=== PATIENT | female | born 1935 ===

== ENCOUNTER 2021-07-30 06:19 | Inpatient (IN) ==
[2021-07-03 16:44] LABS: Basophils # 0.1 10*3/uL (0.0-0.2); Basophils % 0.8 % (0.0-0.8); Eosinophils # 0.2 10*3/uL (0.0-0.87); Eosinophils % 2.6 % (0.00-10.9); Hematocrit 42.3 VOL% (35.7-47.0); Hemoglobin 13.8 GM/DL (12.0-16.0); Immature Granulocytes % 0.5 %; Immature Granulocytes Absolute 0.04 #; Lymphocytes # 2.1 10*3/uL (1.4-4.0); Lymphocytes % 25.8 % (21.3-54.2); Mean Corpuscular HGB Conc 32.6 GM/DL (32-36); Mean Corpuscular Volume 96.8 FL (87-102); Mean Platelet Volume 12.4 FL (9.6-12.0); Monocytes % 7.8 % (1.7-12.7); Neutrophils % 62.5 % (38.7-73.9); Platelet Count 207 T/CUMM (130-400); Red Blood Count 4.37 MC/CUMM (3.8-5.5); Red Cell Distribution Width 13.4 % (9.3-17.3); White Blood Count 8.3 T/CUMM (4-12)
[2021-07-03 17:00] LABS: INR 1.1; PT Patient Result 12.1 SECS (10.5-12.0)
[2021-07-03 17:12] LABS: Albumin 3.4 G/DL (3.4-5.0); Bilirubin,Total 0.7 MG/DL (0.20-1.00); Calcium 9.4 MG/DL (8.5-10.1); Osmolality,Calculated 278.5 MOS/KG (273-304); Potassium 4.5 MMOL/L (3.5-5.1); Total Protein 7.8 G/DL (6.4-8.2)
[2021-07-30] MEDS ORDERED: FAMOTIDINE 20 MG TABLET PO ONE (06:28)
[2021-07-30] MEDS ORDERED: LACTATED RINGERS 1,000 ML IV SCH (06:30)
[2021-07-30] MEDS ORDERED: HEPARIN/NACL 0.9% 2 UNITS/ML 1,000 UNIT/500 ML BAG IV ONE (06:53)
[2021-07-30] MEDS ORDERED: LIDOCAINE 1% 5 ML VIAL ONE (06:53)
[2021-07-30] MEDS ORDERED: MIDAZOLAM 2 MG/2 ML VIAL ONE (07:09)
[2021-07-30] MEDS ORDERED: DEXMEDETOMIDINE 200 MCG/2 ML VIAL ONE (07:09)
[2021-07-30] MEDS ORDERED: HEPARIN/NACL 0.9% 2 UNITS/ML 4,000 UNIT/2,000 ML BAG IV ONE (07:40)
[2021-07-30] MEDS ORDERED: HEPARIN/NACL 0.9% 2 UNITS/ML 2,000 UNIT/1,000 ML BAG IV ONE (07:46)
[2021-07-30] MEDS ORDERED: fentaNYL 100 MCG/2 ML VIAL ONE (08:28)
[2021-07-30] MEDS ORDERED: ONDANSETRON 4 MG/2 ML VIAL IV PRN (10:22)
[2021-07-30] MEDS ORDERED: HYDROmorphone 2 MG/1 ML VIAL IV PRN (10:22)
[2021-07-30] MEDS ORDERED: HEPARIN 10,000 UNIT/10 ML VIAL ONE (10:25)
[2021-07-30] MEDS ORDERED: LIDOCAINE 2% 5 ML VIAL ONE (10:25)
[2021-07-30] MEDS ORDERED: NEOSTIGMINE 10 MG/10 ML VIAL ONE (10:25)
[2021-07-30] MEDS ORDERED: PHENYLEPHRINE 1 MG/10 ML SYRINGE IV ONE (10:25)
[2021-07-30] MEDS ORDERED: ETOMIDATE 40 MG/20 ML VIAL IV ONE (10:26)
[2021-07-30] MEDS ORDERED: GLYCOPYRROLATE 0.4 MG/2 ML VIAL ONE (10:26)
[2021-07-30] MEDS ORDERED: ROCURONIUM 50 MG/5 ML VIAL IV ONE (10:26)
[2021-07-30 12:44] LABS: Hemoglobin 10.8 GM/DL (12.0-16.0)
[2021-07-30 12:58] LABS: Calcium 8.2 MG/DL (8.5-10.1); Osmolality,Calculated 280.4 MOS/KG (273-304); Potassium 3.7 MMOL/L (3.5-5.1)
[2021-07-30] MEDS: LACTATED RINGERS 1,000 ML IV SCH ×2 (15:20→18:15)
[2021-07-30] MEDS: METOPROLOL TARTRATE 25 MG TABLET PO SCH (20:03)
[2021-07-30] MEDS ORDERED: ATORVASTATIN 10 MG TABLET PO SCH (21:00)
[2021-07-31] MEDS: LACTATED RINGERS 1,000 ML IV SCH ×2 (02:00→11:01)
[2021-07-31 06:57] LABS: Calcium 8.1 MG/DL (8.5-10.1); Potassium 3.8 MMOL/L (3.5-5.1)
[2021-07-31] MEDS ORDERED: lisinopriL 10 MG TABLET PO SCH (09:00)
[2021-07-31] MEDS: METOPROLOL TARTRATE 25 MG TABLET PO SCH (09:00)
[2021-07-31] MEDS ORDERED: ASPIRIN EC 81 MG TABLET PO SCH (09:00)
[2021-07-31 11:45] VITALS: BP 117/41
[2021-08-01] MEDS ORDERED: CLOPIDOGREL 75 MG TABLET PO SCH (09:00)
== END 2021-07-31 16:48 | disposition home or self-care (01) | DRG 269 ==
LOC: N.RAD 06:19 → N.SDSINP 06:21 → N.TELES 14:03
PROVIDERS: ADMIT Surgery; ATTEND Surgery
PROC: IRERAAA (2021-07-30 07:05)